=== PATIENT | female | born 1960 | race Caucasian/White ===

== ENCOUNTER 2023-05-22 06:03 | Emergency (ER) | payer MEDICAID ==
[~2023-05-22] VITALS: Ht 157.5 cm; Wt 39.9 kg
[2023-05-22 06:36] LABS: BASOPHILS 0.5 % (0-2); HEMATOCRIT 39.3 % (35.0-50.0); HEMOGLOBIN 13.3 g/dL (12.0-18.0); LYMPHOCYTES 11.4 % (24-44); MCH 31.9 (27-36); MCHC 33.9 g/dl (30-36); MCV 94.2 fl (81-99); MONOCYTES 9.5 % (0-12); NEUTROPHILS 75.6 % (39-80); PLATELET COUNT 320 K/uL (140-440); RBC 4.17 M/ul (4.3-5.7); RDW 12.7 (10.5-15.0)
[2023-05-22 06:52] LABS: ALBUMIN 3.3 g/dL (3.4-5.0); ALBUMIN/GLOBULIN RATIO 1.1 (1.1-2.4); ANION GAP 16.1 (7-21); BILIRUBIN, TOTAL 0.4 ng/dL (0.2-1.0); BUN/CREATININE RATIO 19.14 (6.0-28.6); CALCIUM 8.8 mg/dL (8.5-10.1); CREATININE, SERUM 0.47 mg/dL (0.55-1.02); MAGNESIUM 1.5 mg/dL (1.8-2.4); POTASSIUM 3.1 mmol/L (3.5-5.1); PROTEIN, TOTAL 6.3 g/dL (6.4-8.2)
[2023-05-22] MEDS ORDERED: PROTONIX40 M1 PO (06:56)
[2023-05-22] MEDS ORDERED: LIPITOR10 MG PO (06:56)
[2023-05-22 07:19] LABS: BILIRUBIN, URINE NEGATIVE (negative); BLOOD/HGB, URINE TRACE-I (Negative); KETONE, URINE TRACE (Negative); LEUK ESTERASE, URINE NEGATIVE (negative); NITRITE, URINE NEGATIVE (negative)
[2023-05-22 07:39] LABS: BACTERIA, URINE NONE SEEN /hpf (negative); CASTS, URINE NONE SEEN \\lpf; COLLECTION TYPE, URINE CLEAN CATCH; CRYSTALS, URINE NONE SEEN (0-1+); EPITHELIAL CELLS, URINE SQUAMOUS 1+ /lpf (0-1+); REFLEX CULTURE, URINE No (No)
[2023-05-22 07:45] VITALS: BP 156/95
== END 2023-05-22 07:45 | disposition home or self-care (01) ==
LOC: ED 06:03
PROVIDERS: Internal Medicine
DX: S01.01XA Laceration without foreign body of scalp, initial encounter (principal); W18.30XA Fall on same level, unspecified, initial encounter; Z79.899 Other long term (current) drug therapy
CPT/HCPCS: 12001; 36415; 70450; 73090; 80053; 81001; 83735; 85025; 99284-25; A9270